=== PATIENT | female | born 1980 | race Caucasian/White ===

== ENCOUNTER 2021-06-10 17:09 | Emergency (ER) | payer OTHER ==
[~2021-06-10] VITALS: Ht 175.3 cm; Wt 52.2 kg
--- NOTE | 2021-06-10 17:56 | NUR ---
DR CORRALES EVALUATED THE PT.
[2021-06-10 18:25] LABS: HEMATOCRIT 38.6 % (31.2-41.9); MEAN CORPUSCULAR VOLUME 95.2 fL (75.5-95.3); PLATELET COUNT (AUTO) 261 K/uL (179-408)
[2021-06-10 18:31] LABS: CREATININE 0.8 mg/dL (0.6-1.3); POTASSIUM 3.7 mmol/L (3.5-5.1)
[2021-06-10 18:37] LABS: BILIRUBIN,TOTAL 0.2 mg/dL (0.2-1.0); TOTAL PROTEIN, SERUM 7.5 g/dL (6.4-8.2)
[2021-06-10 18:38] LABS: *BILIRUBIN,URIN NEGATIVE (NEGATIVE); *COLOR,URINE YELLOW (YELLOW); *KETONES,URINE NEGATIVE (NEGATIVE); *UROBILINOGEN,URINE 0.2 E.U./dl (NORMAL); LEUKOCYTE ESTERASE ,URINE TRACE (NEGATIVE); NITRITE, URINE NEGATIVE (NEGATIVE); UGLUCOSE NEGATIVE (NEGATIVE)
[2021-06-10 18:42] LABS: *BLOOD, URINE TRACE (NEGATIVE)
[2021-06-10 18:49] LABS: *CLARITY,URINE SLIGHTLY HAZY (CLEAR); BACTERIA,URINE FEW /HPF (NONE SEEN); SQUAMOUS EPITHELIAL CELL,UR FEW /HPF (NONE SEEN)
[2021-06-10 19:11] LABS: *URINE HCG, QUAL NEGATIVE (NEGATIVE)
--- NOTE | 2021-06-10 22:03 | NUR ---
PLACED IN HALLWAY AT THIS TIME.
[2021-06-10 23:13] LABS: *OCCULT BLOOD STOOL NEGATIVE (NEGATIVE)
[2021-06-10] MEDS ORDERED: FAMO-132 PO (23:51)
[2021-06-10 23:55] VITALS: BP 132/89
--- NOTE | 2021-06-10 23:55 | NUR ---
Patient discharged to home in stable condition. Written and verbal after care instructions given. Patient verbalizes understanding of instructions. Stressed follow up or return to ER for worsening s/s.
== END 2021-06-10 23:56 | disposition home or self-care (01) ==
LOC: ER 17:12
DX: K62.5 Hemorrhage of anus and rectum (principal); R10.13 Epigastric pain; R94.31 Abnormal electrocardiogram [ECG] [EKG]; R19.7 Diarrhea, unspecified
CPT/HCPCS: 36415; 70030-TC; 83690; 84703; 85025; 93005; A4663